=== PATIENT | male | born 1975 | race African-American/Black ===

== ENCOUNTER 2017-03-15 13:54 | Emergency (ER) | payer SELFPAY ==
[2017-03-15 14:57] VITALS: BP 175/112
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
== END 2017-03-15 14:55 | disposition home or self-care (01) ==
LOC: ED 13:54
DX: T22.412A Corrosion of unspecified degree of left forearm, initial encounter (principal); X58.XXXA Exposure to other specified factors, initial encounter; Y93.9 Activity, unspecified; Y99.9 Unspecified external cause status
CPT/HCPCS: 99283